=== PATIENT | female | born 1990 | race Hispanic/Latino ===

== ENCOUNTER 2017-04-19 15:31 | Observation (INO) | payer BC, MEDICAID ==
[~2017-04-19] VITALS: Ht 162.6 cm; Wt 59.9 kg
[2017-04-19 16:05] LABS: APPEARANCE,URINE Cloudy (CLEAR); BILIRUBIN,URINE Negative (NEGATIVE); COLOR,URINE Yellow (YELLOW); GLUCOSE, URINE (UA) Negative (NEGATIVE); KETONES,URINE 40 mg/dL (NEGATIVE); LEUKOCYTE ESTERASE ,URINE Negative (NEGATIVE); NITRATE,URINE Negative (NEGATIVE); OCCULT BLOOD,URINE Negative (NEGATIVE); PH,URINE 7.5 (5.0-8.0); PROTEIN,URINE Negative (NEGATIVE)
[2017-04-19 16:14] LABS: BACTERIA,URINE Rare /HPF (None Seen); MUCUS,URINE Many LPF (None Seen); RBC,URINE None Seen /HPF (0-1); TRANSITIONAL EPI CELLS,URINE Few /LPF (None Seen); WBC,URINE None Seen /HPF (0-1)
[2017-04-19 18:04] VITALS: BP 92/54
[2017-04-19] MEDS ORDERED: ACETAMINOPHEN 325 MG TAB ONE (18:14)
[2017-04-19] MEDS ORDERED: PROMETHAZINE HCL 25 MG/ML 1ML AMPULE IM PRN (20:00)
[2017-04-19] MEDS: DEXTROSE 5 %-0.45 % NACL 1,000 ML IV SCH (20:38)
[2017-04-19] MEDS ORDERED: OSELTAMIVIR PHOSPHATE 75 MG CAP PO SCH (21:00)
[2017-04-19] MEDS: ACETAMINOPHEN 325 MG TAB PO PRN (22:53)
[2017-04-20] MEDS: ACETAMINOPHEN 325 MG TAB PO PRN (02:46)
[2017-04-20] MEDS: DEXTROSE 5 %-0.45 % NACL 1,000 ML IV SCH (05:13)
== END 2017-04-20 09:14 | disposition home or self-care (01) ==
LOC: EDH 15:31 → LDH 15:32
PROVIDERS: ADMIT Obstetrics & Gynecology; ATTEND Obstetrics & Gynecology
DX: O26.893 Other specified pregnancy related conditions, third trimester (principal); R68.83 Chills (without fever); Z3A.32 32 weeks gestation of pregnancy
CPT/HCPCS: 81001; 87804 ×2; 96360; 96361 ×4; 99285; G0378 ×18

== ENCOUNTER 2017-06-05 18:05 | Inpatient (IN) | payer BC, MEDICAID ==
[~2017-06-05] VITALS: Ht 162.6 cm; Wt 67.6 kg
[2017-06-05] MEDS ORDERED: ROPIVACAINE 0.2% 100ML EP SCH (19:15)
[2017-06-05] MEDS ORDERED: NALOXONE HCL 0.4 MG/1 ML ML IV PRN (19:15)
[2017-06-05] MEDS ORDERED: EPHEDRINE SULFATE 50 MG/ML AMPULE IVP PRN (19:15)
[2017-06-05] MEDS ORDERED: LACTATED RINGERS 500 ML 500 ML IV PRN (19:15)
[2017-06-05 19:31] LABS: HEMATOCRIT 32.5 % (36-48); MEAN CORPUSCULAR HEMOGLOBIN 30.8 pg (27.0-33.0); MEAN CORPUSCULAR HGB CONC 34.6 g/dL (32.0-36.0); PLATELET COUNT (AUTO) 236 K/uL (130-400); RED BLOOD CELL COUNT(AUTO) 3.66 MIL/uL (4.00-5.50); RED CELL DISTRIBUTION WIDTH 13.2 % (11.0-15.5); WHITE BLOOD COUNT (AUTO) 7.9 K/uL (4.8-10.8)
[2017-06-05] MEDS ORDERED: DINOPROSTONE 10 MG VAGINAL SUPP ONE (19:47)
[2017-06-05] MEDS: LACTATED RINGERS 1000ML 1,000 ML IV PRN ×2 (19:49→22:37)
[2017-06-05 20:39] VITALS: BP 114/63
[2017-06-05 20:44] LABS: BILIRUBIN,URINE Negative (NEGATIVE); COLOR,URINE Yellow (YELLOW); GLUCOSE, URINE (UA) Negative (NEGATIVE); KETONES,URINE Negative (NEGATIVE); LEUKOCYTE ESTERASE ,URINE Trace (NEGATIVE); NITRATE,URINE Negative (NEGATIVE); OCCULT BLOOD,URINE Negative (NEGATIVE); PROTEIN,URINE Negative (NEGATIVE)
[2017-06-05] MEDS ORDERED: PREN1TAB26 PO (20:44)
[2017-06-05 20:45] LABS: APPEARANCE,URINE SLIGHTLY CLOUDY (CLEAR)
[2017-06-05] MEDS ORDERED: DINOPROSTONE 10 MG VAGINAL SUPP VG ONE (20:45)
[2017-06-05 21:01] LABS: RBC,URINE 0-1 /HPF (0-1)
[2017-06-05 21:02] LABS: BACTERIA,URINE Few /HPF (None Seen)
[2017-06-05 21:03] LABS: AMORPHOUS SEDIMENT,UR Few /LPF (None Seen); SQUAMOUS EPITHELIAL CELL,UR Few /LPF (0-2)
[2017-06-05 21:04] LABS: HYALINE CASTS, URINE 0-1 /LPF (0-1 /LPF)
[2017-06-06] MEDS: LACTATED RINGERS 1000ML 1,000 ML IV PRN (06:25)
[2017-06-06] MEDS ORDERED: LACTATED RINGERS 1000ML 1,000 ML IV ONE ×2 (07:37→16:38)
[2017-06-06] MEDS ORDERED: OXYTOCIN 10 USP UNITS/ML ONE ×2 (07:38→16:39)
[2017-06-06] MEDS: OXYTOCIN 10 USP UNITS/ML 20 UNIT in LACTATED RINGERS 1000ML 1,000 ML IV SCH ×2 (08:15→16:45)
[2017-06-06 09:15] LABS: RAPID PLASMA REAGIN NONREACTIVE (NONREACTIVE)
[2017-06-06] MEDS ORDERED: MEPERIDINE-PF 50 MG/ML SYG IVP PRN (09:45)
[2017-06-06] MEDS ORDERED: PROMETHAZINE HCL 25 MG/ML 1ML AMPULE IM PRN (09:45)
[2017-06-06] MEDS ORDERED: LIDOCAINE HCL 1% 20 ML VIAL ONE (15:59)
[2017-06-06] MEDS ORDERED: DIPH,PERTUSS(ACELL),TET VAC/PF 0.5 ML VIAL IM PRN (16:15)
[2017-06-06] MEDS ORDERED: IBUPROFEN 800 MG TAB PO PRN (16:15)
[2017-06-06] MEDS ORDERED: LANOLIN 30GM OINTMENT TP PRN (16:15)
[2017-06-06] MEDS ORDERED: BENZOCAINE/LANOLIN/ALOE VERA 60 ML AEROSOL TP PRN (16:15)
[2017-06-06] MEDS ORDERED: OXYTOCIN-LR 20 UNITS/1000 ML 1,000 ML IV SCH (16:15)
[2017-06-06] MEDS ORDERED: ACETAMINOPHEN 325 MG TAB PO PRN (16:15)
[2017-06-06] MEDS ORDERED: WITCH HAZEL 1 PAD TP PRN (16:15)
[2017-06-06] MEDS ORDERED: MEASLES/MUMPS/RUBELLA VACCINE, LIVE 0.5 ML/VIAL SQ PRN (16:15)
[2017-06-06] MEDS ORDERED: ACETAMINOPHEN-CODEINE 300/30MG TAB PO PRN (16:15)
[2017-06-06 17:41] VITALS: BP 96/64
[2017-06-06 20:19] VITALS: BP_SYST 111; BP_SYST 116; BP_DIAS 59; BP_DIAS 69
[2017-06-06] MEDS: DOCUSATE SODIUM 100 MG CAP PO SCH (20:56)
[2017-06-06 22:58] VITALS: BP 116/69
[2017-06-07 03:41] VITALS: BP 101/48
[2017-06-07 06:35] LABS: HEMATOCRIT 29.1 % (36-48); MEAN CORPUSCULAR HEMOGLOBIN 31.1 pg (27.0-33.0); MEAN CORPUSCULAR HGB CONC 34.7 g/dL (32.0-36.0); MEAN CORPUSCULAR VOLUME 89.8 fL (79-99); PLATELET COUNT (AUTO) 174 K/uL (130-400); RED BLOOD CELL COUNT(AUTO) 3.24 MIL/uL (4.00-5.50); RED CELL DISTRIBUTION WIDTH 13.4 % (11.0-15.5); WHITE BLOOD COUNT (AUTO) 10.4 K/uL (4.8-10.8)
[2017-06-07 07:26] VITALS: BP 102/58
[2017-06-07] MEDS ORDERED: BUTALB/ACETAMINOPHEN/CAFFEINE 1 EACH TABLET PO PRN (07:30)
[2017-06-07 08:23] LABS: HEPATITIS Bs ANTIGEN SCREEN P Negative (Negative)
[2017-06-07] MEDS: BUTALB/ACETAMINOPHEN/CAFFEINE 1 EACH TABLET PO PRN ×2 (08:57→12:49)
[2017-06-07] MEDS: DOCUSATE SODIUM 100 MG CAP PO SCH (08:57)
[2017-06-07 11:11] VITALS: BP 105/60
[2017-06-07 15:43] VITALS: BP 106/67
== END 2017-06-07 17:45 | disposition home or self-care (01) | DRG 775 ==
LOC: LDH 18:05 → WSH 06-06 17:40 → EDSTATUS 06-11 18:04
PROVIDERS: ADMIT Obstetrics & Gynecology; ATTEND Obstetrics & Gynecology
PROC: 10907ZC Drainage of Amniotic Fluid, Therapeutic from Products of Conception, Via Natural or Artificial Opening (ICD-10-PCS; principal; 2017-06-06)
PROC: 10E0XZZ Delivery of Products of Conception, External Approach (ICD-10-PCS; 2017-06-06)
PROC: 3E033VJ Introduction of Other Hormone into Peripheral Vein, Percutaneous Approach (ICD-10-PCS; 2017-06-06)
PROC: 3E0P7VZ Introduction of Hormone into Female Reproductive, Via Natural or Artificial Opening (ICD-10-PCS; 2017-06-06)
PROC: 0TQDXZZ Repair Urethra, External Approach (ICD-10-PCS; 2017-06-06)
PROC: 3E0234Z Introduction of Serum, Toxoid and Vaccine into Muscle, Percutaneous Approach (ICD-10-PCS; 2017-06-06)
PROC: 3E0134Z Introduction of Serum, Toxoid and Vaccine into Subcutaneous Tissue, Percutaneous Approach (ICD-10-PCS; 2017-06-06)
PROC: 3E0R3BZ Introduction of Anesthetic Agent into Spinal Canal, Percutaneous Approach (ICD-10-PCS; 2017-06-06)
PROC: 00HU33Z Insertion of Infusion Device into Spinal Canal, Percutaneous Approach (ICD-10-PCS; 2017-06-06)
DX: O71.82 Other specified trauma to perineum and vulva (principal); Z37.0 Single live birth; Z23 Encounter for immunization; Z3A.39 39 weeks gestation of pregnancy
CPT/HCPCS: 36415; 81001; 85027; 86592; 86701; 86850; 86900; 86901; 87340; 87390; J2590; J2795; J7120

== ENCOUNTER 2017-06-09 09:24 | Observation (INO) | payer BC, MEDICAID ==
[~2017-06-09 09:24] MED LIST: PREN1TAB26 PO
[2017-06-09 09:55] VITALS: BP 112/65
[2017-06-09] MEDS ORDERED: LACTATED RINGERS 1000ML 1,000 ML IV SCH (10:00)
[2017-06-09 11:36] VITALS: BP 109/65
== END 2017-06-09 12:50 | disposition home or self-care (01) ==
LOC: WSH 09:24
PROVIDERS: ADMIT Obstetrics & Gynecology; ATTEND Obstetrics & Gynecology
DX: T88.59XA Other complications of anesthesia, initial encounter (principal); G44.40 Drug-induced headache, not elsewhere classified, not intractable
CPT/HCPCS: 96360; 96361; G0378

== ENCOUNTER 2017-06-12 12:10 | Emergency (ER) | payer BC, MEDICAID ==
[2017-06-12] MEDS ORDERED: ONDANSETRON HCL 4 MG/2 ML VIAL ONE ×2 (12:33→12:57)
[2017-06-12] MEDS ORDERED: METOCLOPRAMIDE 10 MG TABLET ONE ×2 (12:33→12:58)
[2017-06-12 12:50] LABS: APPEARANCE,URINE Clear (CLEAR); BILIRUBIN,URINE Negative (NEGATIVE); COLOR,URINE Yellow (YELLOW); GLUCOSE, URINE (UA) Negative (NEGATIVE); KETONES,URINE Trace mg/dL (NEGATIVE); LEUKOCYTE ESTERASE ,URINE Trace (NEGATIVE); NITRATE,URINE Negative (NEGATIVE); OCCULT BLOOD,URINE Trace (NEGATIVE); PH,URINE 7.5 (5.0-8.0); PROTEIN,URINE Negative (NEGATIVE)
[2017-06-12] MEDS ORDERED: SODIUM CHLORIDE 0.9% 1000ML 1,000 ML IV ONE (12:57)
[2017-06-12 13:02] LABS: BASOPHILS % (AUTO) 0.6 % (0.0-5.0); EOSINOPHILS % (AUTO) 2.7 % (0.0-8.0); HEMATOCRIT 31.2 % (36-48); LYMPHOCYTES % (AUTO) 14.6 % (21.0-51.0); MEAN CORPUSCULAR HEMOGLOBIN 31.3 pg (27.0-33.0); MEAN CORPUSCULAR VOLUME 89.2 fL (79-99); NEUTROPHILS % (AUTO) 78.1 % (40.0-77.0); PLATELET COUNT (AUTO) 226 K/uL (130-400); RED BLOOD CELL COUNT(AUTO) 3.49 MIL/uL (4.00-5.50); RED CELL DISTRIBUTION WIDTH 13.8 % (11.0-15.5); WHITE BLOOD COUNT (AUTO) 8.3 K/uL (4.8-10.8)
[2017-06-12 13:12] LABS: BACTERIA,URINE Rare /HPF (None Seen); MUCUS,URINE Few LPF (None Seen); RBC,URINE None Seen /HPF (0-1); SQUAMOUS EPITHELIAL CELL,UR Rare /LPF (0-2); WBC,URINE 0-1 /HPF (0-1)
[2017-06-12 13:25] LABS: CREATININE 0.6 mg/dL (0.5-1.5); POTASSIUM 3.1 mmol/L (3.5-5.1)
[2017-06-12 13:29] LABS: ALBUMIN 2.6 g/dL (3.5-5.0); BILIRUBIN,TOTAL 0.2 mg/dL (0.2-1.0); TOTAL PROTEIN, SERUM 6.6 g/dL (6.0-8.3)
[2017-06-12] MEDS ORDERED: POTASSIUM BICARB/CIT AC 25 MEQ TABLET.EFF ONE (13:39)
== END 2017-06-12 16:30 | disposition home or self-care (01) ==
LOC: EDH 12:10
DX: O89.4 Spinal and epidural anesthesia-induced headache during the puerperium (principal); R51 Headache; Z79.899 Other long term (current) drug therapy
CPT/HCPCS: 36415; 80053; 81001; 85025; 96361; 96374; 99285; J2405 ×2; J7030